=== PATIENT | male | born 1995 | race Hispanic/Latino ===

== ENCOUNTER 2023-09-27 19:01 | Inpatient (IN) | payer SELFPAY ==
--- OUTSIDE RECORDS SUMMARY | 2023-09-27 19:04 | XMS REPORT | Continuity of Care Document ---
:1995 Author Organization [facility] t Address [address] [place] [address] Care Team Providers Name Role Phone Kristie Valdez Attending Clinician Doctor Unassigned, [place] Attending Clinician Unavailable Problems This patient has no known problems. Allergies, Adverse Reactions, Alerts This patient has no known allergies or adverse reactions. Social History Social Habit Start Date Stop Date Quantity Comments [facility] Smoking Status Start Date Stop Date Source Unknown if ever smoked [facility] Medications Ordered Filled Start Stop Current Ordering Indication Dosage Frequency Signature Comments Components Source Medication Medication Date Date Medication? Clinician (SIG) Name Name No known No [facility] medications [facility] Vital Signs Vital Name Observation Time Observation Value Comments Source Systolic blood 2019-12-26 18:19:00 132 mm[Hg] [facility] Diastolic blood 2019-12-26 18:19:00 78 mm[Hg] [facility] Heart rate 2019-12-26 18:19:00 77 /min [facility] Body temperature 2019-12-26 18:19:00 36.89 [facility] Respiratory rate 2019-12-26 18:19:00 14 /min [facility] Body height 2019-12-26 18:19:00 190.5 cm [facility] Body weight 2019-12-26 18:19:00 63.504 kg [facility] BMI 2019-12-26 18:19:00 17.50 kg/m2 [facility] Oxygen saturation in 2019-12-26 18:19:00 100 /min [facility] blood by [facility] Pulse oximetry Branch Procedures Procedure Date / Time Performed Performing Clinician [facility] e NOTICE OF PRIVACY 2019-12-26 18:13:30 Doctor Unassigned, No [facility] [place] [facility] Name Medical Branch CONSENT/REFUSAL FOR 2019-12-26 18:13:17 Doctor Unassigned, [facility] AND Name Medical Branch TREATMENT Encounters Start End Encounter Admission Attending Care Care Encounter Source Date/Time Date/Time Type Type Clinicians Facility Department ID 2019-12-26 2019-12-26 Emergency Margo [facility] [id number] Univers 12:20:04 13:06:00 Kristiewayne Rea [id number] [facility] [place] [id number] [facility] [id number] [facility] tung 084 Branch 2019-12-26 2019-12-26 Orders Doctor LIU [id number] Univers 00:00:00 00:00:00 Only Unassigned, JOSIE [id number] [facility] [place] [facility] [id number] Michel [id number] [facility] tung 009 Branch Results This patient has no known results.
[2023-09-27 19:10] LABS: Arterial Blood Carboxyhemoglob 0.5 % (0-1.5); Blood O2 Saturation 94.3 % (92-98.5)
[2023-09-27 19:31] LABS: Absolute Lymphocytes (CBC) 0.6 K/uL (0.7-4.9); Hematocrit 39.7 % (39.6-49.0); Lymphocytes % 2.4 % (15.3-44.8); MCV 88.3 fL (80-100); MPV 8.6 fL (7.6-11.3); Platelets 246 thou/uL (152-406)
[2023-09-27 19:37] LABS: Protime INR 1.38
[2023-09-27] MEDS ORDERED: THIAMINE 200 MG/2 ML INJ ONE (19:40)
[2023-09-27] MEDS ORDERED: NA CHLORIDE 0.9% 1,000 ML ONE (19:51)
[2023-09-27] MEDS ORDERED: EPINEPHrine 1 MG/10 ML SYR ONE (19:51)
[2023-09-27] MEDS ORDERED: MIDAZOLAM HCL IN 0.9 % NACL/PF 100 MG/100 ML BAG IVPB ONE (19:57)
[2023-09-27 19:59] LABS: ALT/SGPT 125 U/L (16-61); AST/SGOT 356 U/L (15-37); Albumin 3.1 g/dL (3.4-5.0); Alkaline Phosphatase 81 U/L (45-117); BUN Blood Urea Nitrogen 15 mg/dL (7-18); Bicarbonate 24 mEq/L (21-32); Bilirubin Total 0.1 mg/dL (0.2-1.0); Glomerular Filtration Rate 37 ml/min (=/>90); Magnesium 2.7 mg/dL (1.6-2.4); Potassium 4.4 mEq/L (3.5-5.1); Protein, Total 6.1 g/dL (6.4-8.2); Sodium Level 140 mEq/L (136-145)
[2023-09-27] MEDS ORDERED: MIDAZOLAM HCL 100 MG in NA CHLORIDE 0.9% 80 ML IV SCH (20:00)
[2023-09-27] MEDS ORDERED: NOREPINEPHRINE BITARTRATE/D5W 0 MG/0 ML BAG IV ONE (20:00)
[2023-09-27] MEDS ORDERED: NOREPINEPHRINE 4 MG in D5W 250 ML IV SCH (20:00)
[2023-09-27] MEDS: NA CHLORIDE 0.9% 1,000 ML IV SCH ×3 (20:00→22:28)
[2023-09-27 20:06] LABS: Bilirubin Direct < 0.1 mg/dL (0-0.2); Bilirubin Indirect, Calculated ND mg/dL (0.2-0.8)
[2023-09-27 20:06] LABS: Barbiturates NEGATIVE (NEGATIVE); Benzodiazepines NEGATIVE (NEGATIVE); Cocaine NEGATIVE (NEGATIVE); METHAMPHETAM POSITIVE (NEGATIVE); Methadone NEGATIVE (NEGATIVE); Opiates NEGATIVE (NEGATIVE); Phencyclidine NEGATIVE (NEGATIVE); THC Cannibis NEGATIVE (NEGATIVE)
[2023-09-27 20:07] LABS: Glucose Level 51 mg/dL (74-106)
[2023-09-27 20:08] LABS: Troponin High Sensitivity 565.7 pg/mL (<58.9)
[2023-09-27 20:16] LABS: Blood Morphology Comment NOT SEEN (NOT SEEN); Platelet Estimate ADEQ
--- NOTE | 2023-09-27 20:32 | RAD REPORT ---
EXAM DESCRIPTION: Shruthi Single View09/27/2023 7:31 pm CLINICAL HISTORY: CHEST PAIN COMPARISON: No comparisons TECHNIQUE: Portable AP view of the chest. FINDINGS: Endotracheal tube terminates in the upper thoracic trachea, terminating 8.2 cm above the c frank. Enteric tube in satisfactory position. Hazy right basal lung airspace opacification. No pneum othorax or effusion. The cardiomediastinal contours are unremarkable. IMPRESSION: Endotracheal and enteric tube as above. Hazy right basilar airspace opacity, concerning for aspiration or pneumonia.
[2023-09-27] MEDS: ALBUTEROL 2.5 MG/3 ML NEB SOL NEB SCH (20:45)
--- NOTE | 2023-09-27 20:48 | RAD REPORT ---
EXAM DESCRIPTION: CT - [id number] - 09/27/2023 7:44 pm CLINICAL HISTORY: AMS COMPARISON: No comparisons TECHNIQUE: Axial thin cut noncontrast CT images of the head were obtained. Axial thin cut noncontrast CT images of the cervical spine were obtained. Multiplanar reformatted images were generated and reviewed. All CT scans are performed using dose optimization technique as appropriate and may include automated exposure control or mA/KV adjustment according to patient size. FINDINGS: CT HEAD WITHOUT CONTRAST: No acute hemorrhage, hydrocephalus or extra-axial collection is identified.No areas of brain edema or midline shift. The paranasal sinuses and mastoids are clear.The calvarium is intact. CT CERVICAL SPINE WITHOUT CONTRAST: No fracture or subluxation.No prevertebral soft tissues swelling is identified. Enteric tube in plac e. Fluid opacification of the nasopharynx and left paranasal sinuses. IMPRESSION: No acute traumatic intracranial or cervical spine findings.
[2023-09-27] MEDS ORDERED: ALBUTEROL 2.5 MG/3 ML NEB SOL ONE (20:52)
--- NOTE | 2023-09-27 21:16 | ER ---
Nurse's Notes [facility] Name: Sae Betancur III Age: 27 yrs Sex: Male : 1995 Arrival Date: 09/27/2023 Time: 19:01 Bed 2 Private MD: Diagnosis: Acute respiratory failure;Rhabdomyolysis;Elevated troponin;Hypoglycemia, unspecified Presentation: 09/27 19:08 Chief complaint: EMS states: 26 year old male, inmate in [facility] group home, found by ph officer in cell slumped over, unresponsive w/ snoring respirations, pt then became apneic and pulsess, officer started compressions x approx 2 minutes, upon EMS arrival pt was breathing, + pulses, pinpoint pupils noted, 4.mg Narcan given w/ no response, pt then began to have seizure like activity x 3, longest lasting approx 5 minutes, BGL 45, D10 given, BGL improved to 170, Pt intubated by EMS, 8 ETT measuring 21\T\ teeth 150 mg Ketamine and 80 mg Rocuronium given for intubation. Suspected Fentanyl overdose per officer at bedside. Coronavirus screen: Vaccine status: Patient reports being unvaccinated. Ebola Screen: No symptoms or risks identified at this time. Initial Sepsis Screen: Does the patient meet any 2 criteria? No. Patient's initial sepsis screen is negative. Does the patient have a suspected source of infection? No. Patient's initial sepsis screen is negative. Risk Assessment: Do you want to hurt yourself or someone else? Patient reports no desire to harm self or others. Onset of symptoms was September 27, 2023. 19:08 Method Of Arrival: EMS: [facility] 19:08 Acuity: TOMAS 1 ph Historical: - Allergies: 19:15 No Known Allergies; ph - PMHx: 19:15 None; ph - Immunization history:: Adult Immunizations unknown. - Social history:: Smoking status: unknown. Screenin:15 Abuse screen: unable to access, unconscious upon arrival. jw7 19:15 [facility] ED Fall Risk Assessment (Adult) History of falling in the last 3 months, jw7 including since admission No falls in past 3 months (0 pts) Score/Fall Risk Level 0 - 2 = Low Risk. Nutritional screening: No deficits noted. Tuberculosis screening: No symptoms or risk factors identified. Assessment: 19:15 General: Appears distressed, comfortable, Behavior is unresponsive. Pain: Unable to use jw7 pain scale. Patient is intubated. Neuro: Piña Agitation-Sedation Scale (RASS): -4 Deep sedation Level of Consciousness is unresponsive. Cardiovascular: Capillary refill < 3 seconds Clubbing of nail beds is absent JVD is absent Patient's skin is warm and dry. Rhythm is sinus tachycardia. Respiratory: Ventilator assessment: ET Tube: 8.0 23 cm at the teeth Ventilator Mode: Assist Control (AC) Tidal Volume: 450 Respiratory Rate: 20 FiO2: 60 Pressure Support: 20 PEEP: 5. 19:15 GI: Abdomen is flat, non-distended. : No deficits noted. EENT: No deficits noted. jw7 Derm: No deficits noted. Musculoskeletal: No deficits noted. 20:20 Reassessment: Patient appears in no apparent distress at this time. No changes from jw7 previously documented assessment. Patient and/or family updated on plan of care and expected duration. Pain level reassessed. Patient is alert, oriented x 3, equal unlabored respirations, skin warm/dry/pink. 21:30 Reassessment: Patient appears in no apparent distress at this time. No changes from jw7 previously documented assessment. Patient and/or family updated on plan of care and expected duration. Pain level reassessed. Patient is alert, oriented x 3, equal unlabored respirations, skin warm/dry/pink. 21:37 Reassessment: ET Tube adjusted by provider to 25 cm at the teeth. jw7 22:30 Reassessment: Patient appears in no apparent distress at this time. No changes from jw7 previously documented assessment. Patient and/or family updated on plan of care and expected duration. Pain level reassessed. Patient is alert, oriented x 3, equal unlabored respirations, skin warm/dry/pink. Vital Signs: 19:08 BP 94 / 67; Pulse 115; Resp 20; Pulse Ox 96% on ETT vent; FiO2 100 %; Weight 80 kg; ph 20:46 BP 100 / 76; Pulse 108; Resp 18 A; Temp 97(Ca); Pulse Ox 97% on ETT vent; ha1 21:38 BP 110 / 70; Pulse 102 MON; Resp 20 A; Temp 97.8(Ca); Pulse Ox 96% on ETT vent; FiO2 60 jw7 %; 22:30 BP 118 / 62; Pulse 110; Resp 20; Temp 98.1; Pulse Ox 97% on ETT vent; jw7 ED Course: 19:03 Patient arrived in ED. ms3 19:03 Scott Kaur DO is Attending Physician. ms3 19:15 Triage completed. ph 19:15 Patient has correct armband on for positive identification. Bed in low position. Call jw7 light in reach. Side rails up X2. 19:15 Maintain EMS IV. Dressing intact. Good blood return noted. Site clean \T\ dry. Gauge \T\ jw 7 site: 18g and 20g in RAC and LAC . 19:16 Arm band placed on Patient placed in an exam room, on a stretcher, on oxygen, on ph digital product specialist, on pulse oximetry. 19:33 XRAY Chest (1 view) In Process Unspecified. EDMS 19:45 CT Head C Spine In Process Unspecified. EDMS 21:16 Chang Negrete MD is Hospitalizing Provider. ms3 21:34 Shereen Gordillo RN is Primary Nurse. jw7 21:35 Assisted provider with central line placement. Set up central line tray. Triple lumen jw7 line placed in left femoral. Line placed by Cecelia ROME-Nubia Placement verified by CXR, blood return, Dressed with Tegaderm, Patient tolerated well. Time-out/Briefing performed prior to start of procedure? Yes. Was handwashing/sanitizing done immediately prior to procedure? Yes. Was patient positioned to in a way to prevent air embolism? Yes. Was procedure site sterilized? Yes, with chlorhexidine. Was the site allowed to dry? Yes. During the procedure, did the Practitioner(s) maintain a sterile field? Yes. Were unused ports clamped during insertion? Yes. Was blood aspirated from each lumen? Yes. After the procedure, did the Practitioner(s) clean the site and apply a sterile dressing? Yes. 21:55 Blood Culture Adult (2) Sent. ha1 21:55 Lactate w/ 2H reflex if indic. Sent. ha1 21:55 Ptt, Activated Sent. ha1 22:50 Provided Education on: unable to preform education due to patient being intubated and jw7 sedated. 22:50 Patient admitted, IV remains in place. jw7 Administered Medications: 19:16 Drug: D5-NS IV 1000 ml IV at 125 ml/hr once; 1000 mL bolus; followed by 125 mL/hr ph continuous Route: IV; Rate: 125 ml/hr; Site: left antecubital; 21:41 Follow up: Response: No adverse reaction; IV Status: Infusion continued 19:28 Drug: Thiamine IV 100 mg IV at calculated rate once Route: IV; Rate: calculated rate; jw7 Site: left antecubital; 21:41 Follow up: Response: No adverse reaction; IV Status: Completed infusion jw 19:56 Drug: Midazolam IVP or IV 0.01 mg/kg/h IV at calculated rate See Administration jw7 Instructions; (Standard concentration: 100 mg / 100 mL NS); Recommended max rate 0.1 mg/kg/hr; Titrate 0.01 mg/kg/hr as often as every 30 minutes to achieve goal (see titration policy); Goal parameter RASS 0 to -2 {Note: started at 1mg/hr .} Route: IV; Rate: calculated rate; Site: right antecubital; 19:57 Drug: Midazolam IVP or IV 0.01 mg/kg/h IV at calculated rate See Administration jw7 Instructions; (Standard concentration: 100 mg / 100 mL NS); Recommended max rate 0.1 mg/kg/hr; Titrate 0.01 mg/kg/hr as often as every 30 minutes to achieve goal (see titration policy); Goal parameter RASS 0 to -2 Route: IV; Rate: calculated rate; Site: right antecubital; 19:58 Drug: Norepinephrine IV 0.1 mcg/kg/min IV at calculated rate See Administration jw7 Instructions; (Standard concentration 4 mg / 250 mL D5W); Recommended max rate 3 mcg/kg/min; Titrate 0.05 mcg/kg/min as often as every 5 minutes to achieve goal (see titration policy); Goal parameter MAP greater than 65 mmHg. Route: IV; Rate: calculated rate; Site: left antecubital; 22:53 Follow up: Response: No adverse reaction jw7 21:24 Drug: Calcium Gluconate IVPB 2 grams IVPB once over 60 mins; (mix in NS 100 mL) Route: ha1 IVPB; Infused Over: 60 mins; Site: left antecubital; 22:52 Follow up: Response: No adverse reaction; IV Status: Infusion continued upon admission jw 21:35 Drug: Rocephin IV 1 grams IV at calculated rate once; Given slow IV push per pharmacy ha1 instructions Route: IV; Rate: calculated rate; Site: left antecubital; 22:53 Follow up: Response: No adverse reaction; IV Status: Completed infusion jw7 21:55 Drug: AZITHromycin IVPB 500 mg IVPB once over 1 hrs; (mix in 250 mL NS) Route: IVPB; ha1 Infused Over: 1 hrs; Site: left antecubital; 22:53 Follow up: Response: No adverse reaction; IV Status: Infusion continued upon admission jw7 Medication: 21:40 VIS not applicable for this client. jw7 Outcome: 21:16 Decision to Hospitalize by Provider. ms3 22:50 Admitted to ICU accompanied by nurse, via stretcher, room 5, with oxygen, on monitor, jw7 with chart, 22:50 Condition: stable 22:50 Instructed on the need for admit, Demonstrated understanding of instructions, 22:52 Patient left the ED. jw7 Signatures: Dispatcher [employer] EDEsther Houser, RN RN Scott Kaur, DO DO ms3 Shereen Gordillo RN RN jw7 Eun Perez, RN RN ha1
--- NOTE | 2023-09-27 21:17 | EDPHYS ---
Physician Documentation [facility] Name: Sae Betancur III Age: 27 yrs Sex: Male : 1995 Arrival Date: 09/27/2023 Time: 19:01 Bed 2 Private MD: ED Physician Scott Kaur HPI: 09/27 19:16 This 27 yrs old Male presents to ER via EMS with complaints of AMS. ms3 19:16 27-year-old male with no past medical history presents via [facility] after being found ms3 unresponsive in the [facility] [employer] [facility]. Per EMS officer found patient unresponsive in fci cell. Officer states he came on shift at 5 AM and found patient unresponsive at 5:30 PM. It is unknown how long patient was unresponsive on his bed. Officer states drugs that tested positive for methamphetamines were found in patient's cell. Officer states patient quit breathing and became pulseless and chest compressions were performed for 2 minutes and then patient began breathing again. EMS administered 4 mg of Narcan without change in patient's mental status. EMS notes patient's blood glucose level to be 45. Ketamine 150 mg and 80 mg rocuronium were used for RSI with an 8.0 endotracheal tube at 21 cm at the teeth. EMS notes patient had 330-second seizures.. Historical: - Allergies: 19:15 No Known Allergies; ph - PMHx: 19:15 None; ph - Immunization history:: Adult Immunizations unknown. - Social history:: Smoking status: unknown. ROS: 20:39 Unable to obtain ROS due to patient is on ventilator, ms3 Exam: 20:39 Constitutional: The patient appears Unresponsive ms3 20:39 Head/face: Exam is negative for acute changes, obvious evidence of injury or deformity, 20:39 Eyes: Pupils: equal, round, and reactive to light and accomodation, constricted, bilaterally, 20:39 Neck: External neck: no acute changes, 20:39 Chest/axilla: Inspection: normal, no abrasion, no abscess, no assymetry, no cellulitis, no deformity, no ecchymosis, 20:39 Cardiovascular: Rate: tachycardic, Rhythm: regular, 21:40 ECG was reviewed by the Attending Physician. ms3 Vital Signs: 19:08 BP 94 / 67; Pulse 115; Resp 20; Pulse Ox 96% on ETT vent; FiO2 100 %; Weight 80 kg; ph 20:46 BP 100 / 76; Pulse 108; Resp 18 A; Temp 97(Ca); Pulse Ox 97% on ETT vent; ha1 21:38 BP 110 / 70; Pulse 102 MON; Resp 20 A; Temp 97.8(Ca); Pulse Ox 96% on ETT vent; FiO2 60 jw7 %; 22:30 BP 118 / 62; Pulse 110; Resp 20; Temp 98.1; Pulse Ox 97% on ETT vent; jw7 MDM: 19:03 Patient medically screened. ms3 20:42 Differential Diagnosis: CVA, electrolyte abnormality, hypoglycemia, intracranial bleed, ms3 overdose. Data reviewed: vital signs, nurses notes, and as a result, I will admit patient. Consideration of Admission/Observation Patient was admitted/placed on observation. Management of patient was discussed with the following: Hospitalist: Cecelia Leon NP on behalf of Hospitalist team. I considered the following discharge prescriptions or medication management in the emergency department Medications were administered in the Emergency Department. See MAR. Independent interpretation of the following test(s) in the Emergency Department EKG: See my EKG interpretation above X-Ray: My interpretation is CXR image reviewed by me- ETT needs 4 cm advancement. 09/27 19:04 Order name: Basic Metabolic Panel; Complete Time: 20:37 ms3 09/27 19:04 Order name: CBC with Diff; Complete Time: 20:37 ms3 09/27 19:04 Order name: LFT's; Complete Time: 20:37 ms3 09/27 19:04 Order name: Magnesium; Complete Time: 20:37 ms3 09/27 19:04 Order name: PT-INR; Complete Time: 20:37 ms3 09/27 19:04 Order name: Troponin HS; Complete Time: 20:37 ms3 09/27 19:04 Order name: ABG; Complete Time: 20:37 ms3 09/27 19:16 Order name: CK; Complete Time: 21:14 ms3 09/27 19:23 Order name: UDS; Complete Time: 20:37 rv 09/27 20:04 Order name: CBC with Automated Diff EDMS 09/27 20:04 Order name: Comprehensive Metabolic Panel EDMS 09/27 20:04 Order name: Magnesium EDMS 09/27 20:04 Order name: ABG Arterial Blood Gas; Complete Time: 22:10 EDMS 09/27 20:16 Order name: Manual Differential; Complete Time: 20:37 EDMS 09/27 20:45 Order name: Blood Culture Adult (2) ms3 09/27 20:45 Order name: Lactate w/ 2H reflex if indic. ms3 09/27 20:45 Order name: Ptt, Activated ms3 09/27 21:08 Order name: Glucose, Ancillary Testing; Complete Time: 21:14 EDMS 09/27 21:12 Order name: PTT, Activated Partial Thromb; Complete Time: 21:14 EDMS 09/27 21:51 Order name: Lactate w/ 2H reflex if indic.; Complete Time: 22:10 EDMS 09/27 19:04 Order name: XRAY Chest (1 view); Complete Time: 20:37 ms3 09/27 19:04 Order name: CT Head C Spine; Complete Time: 21:14 ms3 09/27 20:04 Order name: Abdomen 1 View (KUB) EDMS 09/27 21:29 Order name: RAD; Complete Time: 21:31 EDMS 09/27 19:04 Order name: EKG; Complete Time: 19:04 ms3 09/27 20:04 Order name: EKG Electrocardiogram EDMS 09/27 20:04 Order name: EKG Electrocardiogram EDMS 09/27 20:04 Order name: EKG Electrocardiogram EDMS 09/27 20:04 Order name: EKG Electrocardiogram EDMS 09/27 19:04 Order name: Cardiac monitoring; Complete Time: 19:16 ms3 09/27 19:04 Order name: EKG - Nurse/Tech; Complete Time: 19:16 ms3 09/27 19:04 Order name: IV Saline Lock; Complete Time: 19:16 ms3 09/27 19:04 Order name: Labs collected and sent; Complete Time: 19:34 ms3 09/27 19:04 Order name: O2 Per Protocol; Complete Time: 19:16 ms3 09/27 19:04 Order name: O2 Sat Monitoring; Complete Time: 19:16 ms3 09/27 20:45 Order name: Accucheck; Complete Time: 20:57 ms3 09/27 20:45 Order name: IV Saline Lock - Large Bore; Complete Time: 20:48 ms3 09/27 20:45 Order name: Vital Signs; Complete Time: 20:47 ms3 EC:40 Rate is 108 beats/min. Rhythm is regular. QRS [place] is Normal. [place] interval is normal. ms3 QRS interval is normal. Clinical impression: Sinus tachycardia. Interpreted by me. Reviewed by me. Administered Medications: 19:16 Drug: D5-NS IV 1000 ml IV at 125 ml/hr once; 1000 mL bolus; followed by 125 mL/hr ph continuous Route: IV; Rate: 125 ml/hr; Site: left antecubital; 21:41 Follow up: Response: No adverse reaction; IV Status: Infusion continued jw7 19:28 Drug: Thiamine IV 100 mg IV at calculated rate once Route: IV; Rate: calculated rate; jw7 Site: left antecubital; 21:41 Follow up: Response: No adverse reaction; IV Status: Completed infusion jw7 19:56 Drug: Midazolam IVP or IV 0.01 mg/kg/h IV at calculated rate See Administration jw7 Instructions; (Standard concentration: 100 mg / 100 mL NS); Recommended max rate 0.1 mg/kg/hr; Titrate 0.01 mg/kg/hr as often as every 30 minutes to achieve goal (see titration policy); Goal parameter RASS 0 to -2 {Note: started at 1mg/hr .} Route: IV; Rate: calculated rate; Site: right antecubital; 19:57 Drug: Midazolam IVP or IV 0.01 mg/kg/h IV at calculated rate See Administration jw7 Instructions; (Standard concentration: 100 mg / 100 mL NS); Recommended max rate 0.1 mg/kg/hr; Titrate 0.01 mg/kg/hr as often as every 30 minutes to achieve goal (see titration policy); Goal parameter RASS 0 to -2 Route: IV; Rate: calculated rate; Site: right antecubital; 19:58 Drug: Norepinephrine IV 0.1 mcg/kg/min IV at calculated rate See Administration jw7 Instructions; (Standard concentration 4 mg / 250 mL D5W); Recommended max rate 3 mcg/kg/min; Titrate 0.05 mcg/kg/min as often as every 5 minutes to achieve goal (see titration policy); Goal parameter MAP greater than 65 mmHg. Route: IV; Rate: calculated rate; Site: left antecubital; 22:53 Follow up: Response: No adverse reaction 7 21:24 Drug: Calcium Gluconate IVPB 2 grams IVPB once over 60 mins; (mix in NS 100 mL) Route: ha1 IVPB; Infused Over: 60 mins; Site: left antecubital; 22:52 Follow up: Response: No adverse reaction; IV Status: Infusion continued upon admission jw7 21:35 Drug: Rocephin IV 1 grams IV at calculated rate once; Given slow IV push per pharmacy ha1 instructions Route: IV; Rate: calculated rate; Site: left antecubital; 22:53 Follow up: Response: No adverse reaction; IV Status: Completed infusion jw7 21:55 Drug: AZITHromycin IVPB 500 mg IVPB once over 1 hrs; (mix in 250 mL NS) Route: IVPB; ha1 Infused Over: 1 hrs; Site: left antecubital; 22:53 Follow up: Response: No adverse reaction; IV Status: Infusion continued upon admission 7 Disposition: 20:42 Critical Care:. ms3 20:44 Chart complete. ms3 Disposition Summary: 09/27/23 21:16 Hospitalization Ordered Notes: Hospitalization Status: Inpatient Admission ms3 Provider: Chang Negrete ms3 Location: Intensive Care Unit ms3 Condition: Stable ms3 Problem: new ms3 Symptoms: are unchanged ms3 Bed/Room Type: Standard ms3 Room Assignment: 7-(09/27/23 22:02) lg3 Diagnosis - Acute respiratory failure ms3 - Rhabdomyolysis ms3 - Elevated troponin ms3 - Hypoglycemia, unspecified ms3 Forms: - Medication Reconciliation Form ms3 - SBAR form ms3 - Leadership Thank You Letter ms3 Critical care time excluding procedures: 20:42 Critical care time: Bedside Care: 30 minutes, Consultation: 5 minutes. Total time: 35 ms3 minutes Signatures: Dispatcher [employer] Cecelia Carranza FNP-C FNP-Esther Boucher RN RN Marcy Becerra RN RN lg3 Scott Kaur DO DO ms3 Shereen Gordillo RN RN jw7 Eun Perez RN RN ha1 Corrections: (The following items were deleted from the chart) 21:56 21:16 ms3 lg3 22:02 21:56 5- lg3 lg3
--- NOTE | 2023-09-27 21:29 | RAD REPORT ---
EXAM DESCRIPTION: RADChest Single View09/27/2023 9:02 pm CLINICAL HISTORY: Placement of NGT/OGT. Post Insertion. COMPARISON: Chest Single View dated 09/27/2023 TECHNIQUE: Portable AP view of the chest. FINDINGS: Endotracheal tube has been advanced, its tip now terminates 6 cm above the bishop. Stable hazy right basilar opacity . . No pneumothorax or effusion. The cardiomediastinal contours are unrem arkable. IMPRESSION: Endotracheal tube has been advanced. Stable right basilar hazy opacity.
[2023-09-27] MEDS ORDERED: CALCIUM GLUCONATE 1 GM IVPB 2 GM/100 ML BAG IV ONE (21:33)
[2023-09-27] MEDS ORDERED: CEFTRIAXONE 1000 MG/VIAL ONE (21:53)
[2023-09-27] MEDS ORDERED: NA CHLORIDE 0.9% 250 ML ONE (21:54)
[2023-09-27] MEDS ORDERED: AZITHROMYCIN 500 MG INJ IVPB ONE (21:54)
[2023-09-27 22:00] LABS: Arterial Blood Carboxyhemoglob 0.4 % (0-1.5); Blood Gas Oxyhemoglobin 91.5 % (94-97); Blood O2 Saturation 93.5 % (92-98.5)
--- NOTE | 2023-09-27 22:03 | P.HP ---
Certification for Inpatient With expected LOS: >2 Midnights Patient will require the following post-hospital care: None Practitioner: I am a practitioner with admitting privileges, knowledge of patient current condition, hospital course, and medical plan of care. Services: Services provided to patient in accordance with Admission requirements found in Title 42 Section 412.3 of the Code of Federal Regulations Patient History Date of Service: 09/28/23 Primary Care Provider: unavailable Reason for admission: Overdose, Respiratory failure s/p CPR, Rhabdomyolysis History of Present Illness: Patient was in the [facility] assisted as of this morning. The night police cadet found patient supine on his bunk, cyanotic, and apneic. The officer started CPR, gave intranasal Narcan. EMS arrived and administered narcan and glucose, the patient began seizing. The patient was intubated and brought to the ED. Initially in the ED the patient did not require sedation but after about 40 minutes began moving minimally. Pt was started on a Versed and Levaphed drip. Pt placed for admission to ICU. Upon assessment, pt necessitated advancement of the 8F ETT to 25cm at the teeth and placement of a central line. Triple lumen placed to left femoral vessel. +Blood return. Will admit to ICU. Allergies Unable to Assess Allergy (Unverified 09/27/23 22:03) Home medications list reviewed: No - Past Medical/Surgical History Has patient received pneumonia vaccine in the past: No Diabetic: No Past Medical History: Unable to obtain Past Surgical History: Unable to obtain - Social History Smoking therapy provided: No (unable to obtain history) Place of Residence: Home Review of Systems is unable to be obtained Physical Examination - Vital Signs Temperature: 97.8 F Blood Pressure: 112/68 Pulse: 109 Respirations: 20 Pulse Ox (%): 96 - Physical Exam General: Unresponsive HEENT: Atraumatic Neck: Supple, 2+ carotid pulse no bruit Respiratory: Clear to auscultation bilaterally, Other (intubated) Cardiovascular: Regular rate/rhythm, Normal S1 S2, Other (tachycardic) Capillary refill: <2 Seconds Gastrointestinal: Normal bowel sounds, Other (OG placed with ETT) Musculoskeletal: No clubbing, No swelling, No contractures Integumentary: Other (mild central chest contusion, right fingers contused) Neurological: Normal reflexes 2+ Lymphatics: No axilla or inguinal lymphadenopathy Urinary: Cervantes catheter, Other (dark/brown urine) External genitalia: No edema, Normal Rectal: Deferred - Studies Laboratory Data (last 24 hrs) 09/27/23 09/27/23 09/27/23 19:11 19:11 19:11 WBC 26.20 H Hgb 12.9 L Hct 39.7 Plt Count 246 PT 15.2 H INR 1.38 APTT 37.3 H Sodium Potassium BUN Creatinine Glucose Magnesium Total Bilirubin AST ALT Alkaline Phosphatase 09/27/23 19:11 WBC Hgb Hct Plt Count PT INR APTT Sodium 140 Potassium 4.4 BUN 15 Creatinine 2.35 H Glucose 51 L* Magnesium 2.7 H Total Bilirubin 0.1 L AST 356 H ALT 125 H Alkaline Phosphatase 81 Assessment and Plan - Problems (Diagnosis) (1) Overdose by amphetamine Current Visit: Yes Status: Acute Plan: Respiratory support via mechanical ventilation with prn Versed for needed sedation Circulatory support with Levaphed to keep map >70 Qualifiers: Encounter type: initial encounter Injury intent: accidental or unintentional Qualified Code(s): T43.621A - Poisoning by amphetamines, accidental (unintentional), initial encounter (2) Collapse with respiratory arrest on examination Current Visit: Yes Status: Acute Plan: mechanical ventilation with inital ABG evaluation and then follow up ABG for evaluation of improvement (3) Rhabdomyolysis Current Visit: Yes Status: Acute Plan: Fluid resuscitation and serial electrolyte evaluation and correction Cervantes and UOP evaluation Qualifiers: Rhabdomyolysis type: non-traumatic Qualified Code(s): M62.82 - Rhabdomyolysis (4) Troponin level elevated Current Visit: Yes Status: Acute Plan: serial troponin evaluation Discharge Plan: Home Plan to discharge in: 72 Hours - Advance Directives Does patient have a Living Will: No Does patient have a Durable POA for Healthcare: No - Code Status/Comfort Care Code Status: Full Code Critical Care: Yes Time Spent Managing Pts Care (In Minutes): 120
[2023-09-27 23:36] LABS: Potassium 4.7 mEq/L (3.5-5.1)
[2023-09-27 23:38] LABS: Troponin High Sensitivity 1780.9 pg/mL (<58.9)
[2023-09-28] MEDS ORDERED: CALCIUM GLUC 10% INJ 4.65 MEQ in NA CHLORIDE 0.9% 100 ML IV ONE (00:38)
[2023-09-28] MEDS ORDERED: CALCIUM GLUCONATE 1 GM IVPB 1 GM/50 ML BAG IV ONE (00:45)
[2023-09-28] MEDS: ALBUTEROL 2.5 MG/3 ML NEB SOL NEB SCH ×2 (01:15→08:20)
[2023-09-28] MEDS: NA CHLORIDE 0.9% 1,000 ML IV SCH ×5 (02:40→17:15)
[2023-09-28 02:44] LABS: Potassium 5.3 mEq/L (3.5-5.1)
[2023-09-28] MEDS ORDERED: NOREPINEPHRINE BITARTRATE/D5W 4 MG/250 ML BAG IV ONE (03:22)
[2023-09-28 04:50] LABS: Absolute Lymphocytes (CBC) 1.4 K/uL (0.7-4.9); Hematocrit 41.7 % (39.6-49.0); Lymphocytes % 8.1 % (15.3-44.8); MCV 87.7 fL (80-100); MPV 8.9 fL (7.6-11.3); Platelets 212 thou/uL (152-406); RBC Red Blood Cell Count 4.76 M/uL (4.33-5.43)
[2023-09-28 05:34] LABS: ALT/SGPT 224 U/L (16-61); AST/SGOT 799 U/L (15-37); Alkaline Phosphatase 74 U/L (45-117); BUN Blood Urea Nitrogen 19 mg/dL (7-18); Bicarbonate 25 mEq/L (21-32); Bilirubin Total 0.2 mg/dL (0.2-1.0); Glomerular Filtration Rate 42 ml/min (=/>90); Glucose Level 125 mg/dL (74-106); Magnesium 2.2 mg/dL (1.6-2.4); Potassium 4.9 mEq/L (3.5-5.1); Protein, Total 6.2 g/dL (6.4-8.2); Sodium Level 137 mEq/L (136-145)
[2023-09-28 05:35] LABS: Creatine Phosphokinase > 13020 U/L (39-308)
[2023-09-28 05:36] LABS: Troponin High Sensitivity 5766.2 pg/mL (<58.9)
[2023-09-28] MEDS ORDERED: NA CHLORIDE 0.9% 1,000 ML IV ONE ×2 (08:07→14:11)
[2023-09-28] MEDS ORDERED: ALBUTEROL 2.5 MG/3 ML NEB SOL ONE (08:20)
[2023-09-28] MEDS: CEFTRIAXONE 1,000 MG in NA CHLORIDE 0.9% 50 ML IVPB SCH ×2 (08:34→21:14)
[2023-09-28] MEDS ORDERED: FENTANYL CITR 100 MCG/2 ML IV PRN (08:38)
[2023-09-28] MEDS ORDERED: MIDAZOLAM HCL 2 MG/2 ML INJ IV PRN (08:38)
[2023-09-28] MEDS ORDERED: HALOPERIDOL LACT 5 MG/ML INJ IV PRN (08:38)
[2023-09-28] MEDS ORDERED: NA CHLORIDE 0.9% 0 ML ONE (08:39)
[2023-09-28] MEDS ORDERED: CEFTRIAXONE 1000 MG/VIAL ONE ×2 (08:39→21:22)
[2023-09-28] MEDS ORDERED: ALBUTEROL 2.5 MG/3 ML NEB SOL NEB PRN ×2 (08:44→14:00)
--- NOTE | 2023-09-28 08:47 | P.CNS ---
Date of Consult: 09/28/23 Reason for Consult: Respiratory failure patient on a ventilator Primary Care Provider: unavailable Chief Complaint: Overdose, Respiratory failure s/p CPR, Rhabdomyolysis History of Present Illness: Patient is 27 years of age found cyanotic apneic again seizing ended up here in the emergency room intubated currently on a ventilator and on a Versed drip/patient is positive for amphetamines troponins elevated rhabdomyolysis Allergies Unable to Assess Allergy (Unverified 09/27/23 22:03) - Past Medical/Surgical History Diabetic: No - Social History Smoking Status: Unknown if ever smoked Alcohol use: No CD- Drugs: Yes Caffeine use: No Place of Residence: Home Review of Systems is unable to be obtained Physical Examination Temp Pulse Resp BP Pulse Ox 98.0 F 94 H 20 122/75 93 09/28/23 05:15 09/28/23 06:45 09/28/23 06:45 09/28/23 06:45 09/28/23 06:45 General: Unresponsive Respiratory: Clear to auscultation bilaterally Cardiovascular: No edema, Regular rate/rhythm, Normal S1 S2 Laboratory Data (last 24 hrs) 09/27/23 09/27/23 09/27/23 19:11 19:11 19:11 WBC 26.20 H Hgb 12.9 L Hct 39.7 Plt Count 246 PT 15.2 H INR 1.38 APTT 37.3 H Sodium Potassium BUN Creatinine Glucose Magnesium Total Bilirubin AST ALT Alkaline Phosphatase 09/27/23 19:11 WBC Hgb Hct Plt Count PT INR APTT Sodium 140 Potassium 4.4 BUN 15 Creatinine 2.35 H Glucose 51 L* Magnesium 2.7 H Total Bilirubin 0.1 L AST 356 H ALT 125 H Alkaline Phosphatase 81 - Problems (1) Respiratory failure Current Visit: Yes Status: Acute Plan: Patient is 27 years of age prisoner admitted respiratory failure positive for amphetamines possible overdose troponins are elevated CPK is also elevated currently on vasopressors we will give some fluid boluses continue with IV fluids decrease FiO2 chest x-ray is clear troponins elevated 2D echo changed to dexmedetomidine patient also has renal failure White count is also elevated heparinized patient Qualifiers: Chronicity: acute
[2023-09-28] MEDS ORDERED: DEXMEDETOMIDINE HCL 200 MCG in NA CHLORIDE 0.9% 98 ML IV SCH (09:00)
[2023-09-28] MEDS ORDERED: NOREPINEPHRINE BITARTRATE/D5W 4 MG/250 ML BAG IV SCH (09:00)
[2023-09-28] MEDS ORDERED: ENOXAPARIN 40 MG/0.4 ML SQ SCH (09:00)
--- NOTE | 2023-09-28 09:02 | P.PN ---
Subjective Date of Service: 09/28/23 Primary Care Provider: unavailable Chief Complaint: Overdose, Respiratory failure s/p CPR, Rhabdomyolysis Subjective: No new changes, Improving Physical Examination - Vital Signs Temperature: 98.0 F Blood Pressure: 122/75 Pulse: 94 Respirations: 20 Pulse Ox (%): 93 - Physical Exam General: Alert HEENT: Atraumatic Neck: Supple Respiratory: Normal air movement Cardiovascular: Regular rate/rhythm, Normal S1 S2 Gastrointestinal: Soft and benign Musculoskeletal: No swelling - Studies Laboratory Data (last 24 hrs) 09/27/23 09/27/23 09/27/23 19:11 19:11 19:11 WBC 26.20 H Hgb 12.9 L Hct 39.7 Plt Count 246 PT 15.2 H INR 1.38 APTT 37.3 H Sodium Potassium BUN Creatinine Glucose Magnesium Total Bilirubin AST ALT Alkaline Phosphatase 09/27/23 19:11 WBC Hgb Hct Plt Count PT INR APTT Sodium 140 Potassium 4.4 BUN 15 Creatinine 2.35 H Glucose 51 L* Magnesium 2.7 H Total Bilirubin 0.1 L AST 356 H ALT 125 H Alkaline Phosphatase 81 Assessment And Plan - Plan Assessment and Plan - Problems (Diagnosis) (1) Overdose by amphetamine Current Visit: Yes Status: Acute Plan: Respiratory support via mechanical ventilation with prn Versed for needed sedation Circulatory support with Levaphed to keep map >70. Critical care following. Qualifiers: Encounter type: initial encounter Injury intent: accidental or unintentional Qualified Code(s): T43.621A - Poisoning by amphetamines, accidental (unintentional), initial encounter (2) Collapse with respiratory arrest on examination Current Visit: Yes Status: Acute Plan: management as above. (3) Rhabdomyolysis Current Visit: Yes Status: Acute Plan: Improving rhabdomyolysis. we will continue IV fludi and follow trend of cpk and troponin. Qualifiers: Rhabdomyolysis type: non-traumatic Qualified Code(s): M62.82 - Rhabdomyol ysis (4) Troponin level elevated Current Visit: Yes Status: Acute Plan: serial troponin evaluation. cardiology eval pending. Discharge Plan: back to correctional service. Plan to discharge in: >48hrs. - Advance Directives Does patient have a Living Will: No Does patient have a Durable POA for Healthcare: No - Code Status/Comfort Care Code Status: Full Code Critical Care: Yes. Discharge Plan: Home
[2023-09-28] MEDS: HEPARIN/D5W 25,000 UNIT/500 ML BAG IV SCH (09:51)
[2023-09-28] MEDS: DEXMEDETOMIDINE HCL 1,000 MCG in NA CHLORIDE 0.9% 490 ML IV SCH ×2 (10:43→23:33)
[2023-09-28] MEDS: LORazepam 2 MG/ML VIAL IV PRN ×2 (10:51→17:50)
[2023-09-28] MEDS ORDERED: LORazepam 2 MG/ML VIAL ONE (11:02)
[2023-09-28 14:08] LABS: Specific Gravity 1.015 (1.005-1.030); Urine Bacteria None Seen /HPF (<20); Urine Bilirubin NEGATIVE (Negative); Urine Blood 3+ (OVER) (Negative); Urine Clarity Extremely Turbid (Clear); Urine Color Light-Orange (Yellow); Urine Glucose NEGATIVE (Negative); Urine Mucus Slight /HPF (None Seen); Urine Protein 1+ (Negative); Urine RBC <5 /HPF (None Seen); Urine Urobilinogen Normal (Normal); Urine pH 5.5 (5.0-7.0)
[2023-09-28] MEDS ORDERED: MIDAZOLAM HCL 2 MG/2 ML INJ ONE (17:26)
[2023-09-28] MEDS ORDERED: NA CHLORIDE 0.9% 1,000 ML ONE (18:02)
[2023-09-28] MEDS ORDERED: FENTANYL CITR 100 MCG/2 ML ONE (18:15)
[2023-09-28] MEDS ORDERED: MIDAZOLAM HCL 5 ML ONE (18:17)
--- NOTE | 2023-09-28 18:49 | RAD REPORT ---
EXAM DESCRIPTION[facility] 6:30 pm CLINICAL HISTORY: attempted self extubation COMPARISON: Chest Single View dated 09/27/2023; Chest Single View dated 09/27/2023 TECHNIQUE: Portable AP view of the chest. FINDINGS: Stable extent of right basilar opacification, with developing small right pleural effusion . Endotracheal and enteric tubes unchanged in position. No pneumothorax or effusion. The cardiomedia stinal contours are unremarkable. IMPRESSION: Developing small right pleural effusion with otherwise stable right basilar airspace opa city, concerning for pneumonia. Endotracheal tube unchanged in position.
[2023-09-28] MEDS ORDERED: NA CHLORIDE 0.9% 100 ML ONE (21:23)
[2023-09-28] MEDS ORDERED: NA CHLORIDE 0.9% 50 ML ONE (21:25)
[2023-09-29] MEDS: NA CHLORIDE 0.9% 1,000 ML IV SCH ×4 (02:37→15:38)
[2023-09-29 05:20] LABS: Absolute Lymphocytes (CBC) 0.3 K/uL (0.7-4.9); Hematocrit 33.8 % (39.6-49.0); Lymphocytes % 3.4 % (15.3-44.8); MCV 86.4 fL (80-100); MPV 8.8 fL (7.6-11.3); Platelets 119 thou/uL (152-406); RBC Red Blood Cell Count 3.91 M/uL (4.33-5.43)
[2023-09-29 06:19] LABS: BUN Blood Urea Nitrogen 22 mg/dL (7-18); Bicarbonate 26 mEq/L (21-32); Glomerular Filtration Rate 53 ml/min (=/>90); Glucose Level 107 mg/dL (74-106); Magnesium 2.1 mg/dL (1.6-2.4); Phosphorus 2.8 mg/dL (2.5-4.9); Potassium 4.2 mEq/L (3.5-5.1); Sodium Level 139 mEq/L (136-145)
[2023-09-29 06:31] LABS: Creatine Phosphokinase > 13020 U/L (39-308)
[2023-09-29] MEDS: CEFTRIAXONE 1,000 MG in NA CHLORIDE 0.9% 50 ML IVPB SCH ×2 (09:26→20:51)
[2023-09-29] MEDS: HEPARIN/D5W 25,000 UNIT/500 ML BAG IV SCH (12:08)
--- NOTE | 2023-09-29 12:22 | P.PN ---
Subjective Date of Service: 09/29/23 Primary Care Provider: unavailable Chief Complaint: Overdose, Respiratory failure s/p CPR, Rhabdomyolysis Subjective: No new changes, Improving Physical Examination - Vital Signs Temperature: 98.6 F Blood Pressure: 133/76 Pulse: 106 Respirations: 20 Pulse Ox (%): 96 - Physical Exam General: Alert HEENT: Atraumatic Assessment And Plan - Plan Assessment and Plan - Problems (Diagnosis) (1) Overdose by amphetamine Current Visit: Yes Status: Acute Plan: self extubated overnight. still quite groggy. Critical care following. Qualifiers: Encounter type: initial encounter Injury intent: accidental or unintentional Qualified Code(s): T43.621A - Poisoning by amphetamines, accidental (unintentional), initial encounter (2) Collapse with respiratory arrest on examination Current Visit: Yes Status: Acute Plan: had self extubated. we will follow as he has signs of aspiration. we will start steroid and metronidazole doses. Pulmonary following. new pleural effusion noted. (3) Rhabdomyolysis Current Visit: Yes Status: Acute Plan: Improving rhabdomyolysis. we will continue IV fluid and follow trend of cpk and troponin. Qualifiers: Rhabdomyolysis type: non-traumatic Qualified Code(s): M62.82 - Rhabdomyolysis (4) Troponin level elevated Current Visit: Yes Status: Acute Plan: serial troponin evaluation. cardiology eval pending. Discharge Plan: back to correctional service. Plan to discharge in: >48hrs. - Advance Directives Does patient have a Living Will: No Does patient have a Durable POA for Healthcare: No - Code Status/Comfort Care Code Status: Full Code Critical Care: Yes.
[2023-09-29] MEDS: ALBUTEROL 2.5 MG/3 ML NEB SOL NEB SCH ×2 (13:40→19:35)
[2023-09-29] MEDS: IPRATROPIUM BROM 0.5MG/2.5ML NEB SCH ×2 (13:40→19:35)
[2023-09-29] MEDS ORDERED: HYDROCODONE/APAP 5/325 MG TAB PO PRN (13:45)
--- NOTE | 2023-09-29 14:09 | EKG ---
Test Date: 2023-09-28 Test Time: 10:47:59 Cylinder Head Assembler: LOLITA MEASUREMENT RESULTS: Intervals: Rate: 87 FL: 138 QRSD: 100 QT: 368 QTc: 442 [place]: P: 79 FL: 138 QRS: 77 T: 70 INTERPRETIVE STATEMENTS: Normal sinus rhythm Normal ECG Compared to ECG 09/27/2023 19:10:49 Sinus tachycardia no longer present Electronically Signed On 09-29-23 14:07:07 RESERVATIONS CLERK by Melchor Ye
--- NOTE | 2023-09-29 14:12 | EKG ---
Test Date: 2023-09-27 Test Time: 19:10:49 Binding Machine Operator: JG MEASUREMENT RESULTS: Intervals: Rate: 108 MO: 152 QRSD: 112 QT: 370 QTc: 495 [place]: P: 79 MO: 152 QRS: 82 T: 65 INTERPRETIVE STATEMENTS: Sinus tachycardia Otherwise normal ECG No previous ECG available for comparison Electronically Signed On 09-29-23 14:07:49 DIRECTOR PEDIATRIC by Melchor Ye
--- NOTE | 2023-09-29 15:02 | RAD REPORT ---
EXAM DESCRIPTION: RAD - Chest Single View - 09/29/2023 4:08 am CLINICAL HISTORY: Self extubated COMPARISON: None. TECHNIQUE: XR CHEST 1 VIEW 09/29/2023 3:47 AM SCHOOL BUS DRIVER/MECHANIC FINDINGS: Cardiac silhouette is normal in size. There is a right basilar consolidation. There is a s mall right pleural effusion. There is no pneumothorax. There are no acute osseous findings. Right dwight phragm is elevated. IMPRESSION: Right basilar pneumonia with effusion. Electronically signed by: Manuel Rodriguez MD 09/29/2023 06:10 AM SCHOOL BUS DRIVER/MECHANIC Due to temporary technical issues with the PACS/Fluency reporting system, reports are being signed by the in house radiologists without review as a courtesy to insure prompt reporting. The interpreting radiologist is fully responsible for the content of the report.
[2023-09-29] MEDS: ACETAMINOPHEN 325 MG TABLET PO PRN ×2 (16:17→23:16)
[2023-09-29] MEDS: METHYLPREDNISOLONE 40 MG INJ IV SCH (17:18)
[2023-09-29] MEDS: METRONIDAZOLE 500mg IVPB 500 MG/100 ML BAG IV SCH (17:18)
[2023-09-29 21:43] VITALS: BMI 24.0
[2023-09-30] MEDS: NA CHLORIDE 0.9% 1,000 ML IV SCH ×5 (00:43→20:19)
[2023-09-30] MEDS: METRONIDAZOLE 500mg IVPB 500 MG/100 ML BAG IV SCH ×3 (00:43→16:15)
[2023-09-30] MEDS: METHYLPREDNISOLONE 40 MG INJ IV SCH ×3 (00:43→16:15)
[2023-09-30] MEDS: IPRATROPIUM BROM 0.5MG/2.5ML NEB SCH ×4 (01:35→19:45)
[2023-09-30] MEDS: ALBUTEROL 2.5 MG/3 ML NEB SOL NEB SCH ×4 (01:35→19:45)
[2023-09-30 04:56] LABS: Absolute Lymphocytes (CBC) 0.1 K/uL (0.7-4.9); Lymphocytes % 2.1 % (15.3-44.8); MCV 86.6 fL (80-100); MPV 9.1 fL (7.6-11.3); Platelets 90 thou/uL (152-406); RBC Red Blood Cell Count 3.35 M/uL (4.33-5.43)
[2023-09-30 05:24] LABS: Albumin 2.2 g/dL (3.4-5.0); Bilirubin Total 0.2 mg/dL (0.2-1.0); Magnesium 2.2 mg/dL (1.6-2.4); Potassium 3.6 mEq/L (3.5-5.1); Protein, Total 5.4 g/dL (6.4-8.2)
[2023-09-30 05:26] LABS: Troponin High Sensitivity 1915.2 pg/mL (<58.9)
[2023-09-30] MEDS: ACETAMINOPHEN 325 MG TABLET PO PRN ×2 (05:36→20:19)
[2023-09-30] MEDS ORDERED: ACETAMINOPHEN 325 MG TABLET PO ONE (06:08)
[2023-09-30] MEDS: POTASS/SODIUM PHOSPHATE 1 PKT POWD.PACK PO SCH ×3 (06:25→10:13)
[2023-09-30] MEDS ORDERED: POTASSIUM CL SA 10 MEQ TAB PO ONE (06:30)
[2023-09-30] MEDS ORDERED: POTASS/SODIUM PHOSPHATE 1 PKT POWD.PACK ONE (06:36)
[2023-09-30] MEDS: MORPHINE 2 MG/ML SYR IV PRN ×3 (07:28→20:19)
[2023-09-30] MEDS: CEFTRIAXONE 1,000 MG in NA CHLORIDE 0.9% 50 ML IVPB SCH ×2 (07:34→20:20)
--- NOTE | 2023-09-30 08:04 | RAD REPORT ---
EXAM DESCRIPTION: [facility] Single View09/30/2023 6:39 am CLINICAL HISTORY: Chest pain COMPARISON: 09/29/2023 FINDINGS: Worsening in [id number] right pulmonary opacities Worsening in [id number] left pulmonary opacities. Heart is normal size IMPRESSION: Worsening in bilateral pulmonary opacities probably pneumonia
--- NOTE | 2023-09-30 10:00 | P.PN ---
Subjective Date of Service: 09/30/23 Primary Care Provider: unavailable Chief Complaint: Overdose, Respiratory failure s/p CPR, Rhabdomyolysis Subjective: No new changes, Improving Physical Examination - Vital Signs Temperature: 99.7 F Blood Pressure: 127/80 Pulse: 82 Respirations: 21 Pulse Ox (%): 93 - Physical Exam General: Alert HEENT: Atraumatic Neck: Supple Respiratory: Normal air movement Cardiovascular: Regular rate/rhythm, Normal S1 S2 Gastrointestinal: Soft and benign Musculoskeletal: No swelling Assessment And Plan - Plan Assessment and Plan - Problems (Diagnosis) (1) Overdose by amphetamine Current Visit: Yes Status: Acute Plan: Much improved significantly. Critical care following. Qualifiers: Encounter type: initial encounter Injury intent: accidental or unintentional Qualified Code(s): T43.621A - Poisoning by amphetamines, accidental (unintentional), initial encounter (2) Collapse with respiratory arrest on examination Current Visit: Yes Status: Acute Plan: Much improved clinically. Chest auscultation is now clear. We will continue metronidazole dose for aspiration pneumonia. Chest x-ray finding is concerning. Pulmonary following. (3) Rhabdomyolysis Current Visit: Yes Status: Acute Plan: Improving rhabdomyolysis. CPK is trending down. we will continue IV fluid and follow trend of cpk and troponin. Qualifiers: Rhabdomyolysis type: non-traumatic Qualified Code(s): M62.82 - Rhabdomyolysis (4) Troponin level elevated Current Visit: Yes Status: Acute Plan: serial troponin evaluation. cardiology eval pending. 5. Aspiration pneumonia: Suspected based on chest x-ray finding. Procalcitonin is elevated. We will continue metronidazole and ceftriaxone doses at this point Continue steroid therapy. Discharge Plan: back to correctional service. Plan to discharge in: >48hrs. - Advance Directives Does patient have a Living Will: No Does patient have a Durable POA for Healthcare: No - Code Status/Comfort Care Code Status: Full Code Critical Care: Yes.
[2023-09-30] MEDS: HEPARIN/D5W 25,000 UNIT/500 ML BAG IV SCH (15:23)
[2023-10-01] MEDS: METHYLPREDNISOLONE 40 MG INJ IV SCH ×3 (00:57→18:56)
[2023-10-01] MEDS: METRONIDAZOLE 500mg IVPB 500 MG/100 ML BAG IV SCH ×3 (01:00→18:56)
[2023-10-01] MEDS: IPRATROPIUM BROM 0.5MG/2.5ML NEB SCH ×4 (01:05→20:05)
[2023-10-01] MEDS: ALBUTEROL 2.5 MG/3 ML NEB SOL NEB SCH ×4 (01:05→20:05)
[2023-10-01] MEDS: MORPHINE 2 MG/ML SYR IV PRN (01:53)
[2023-10-01] MEDS: NA CHLORIDE 0.9% 1,000 ML IV SCH ×4 (05:01→18:58)
--- NOTE | 2023-10-01 05:39 | P.PN ---
Date of Service: 10/01/23 Subjective: Physical Exam: Vitals: reviewed GEN: Alert, oriented, NAD HEENT: Normal conjunctiva, sclera anicteric CV: Regular rate & rhythm, no edema Pulm: Nonlabored respiraitons, clear bilaterally ABD: Soft, nontender, nondistended MSK: No joint tenderness Integumentary: No rashes Neuro: Normal speech, normal affect Problem List: Overdose by amphetamines Collapse with Respiratory arrest on examination Aspiration Pneumonia NSTEMI Rhabdomyolysis Plan: Pulm/Lacing Presser consulted Blood cx: NGTD CXR(09/30): Worsening in bilateral pulmonary opacities probably pneumonia Continue empiric rocephin / flagyl febrile, no leukocytosis continue solu-medrol currently on high flow; wean as tolerated GEORGE nebs IV heparin Echo pending PRN morphine Continue IV fluids Monitor renal function Renally dose medications
[2023-10-01 05:45] LABS: Magnesium 1.8 mg/dL (1.6-2.4); Phosphorus 2.2 mg/dL (2.5-4.9); Potassium 3.4 mEq/L (3.5-5.1)
[2023-10-01] MEDS ORDERED: POTASSIUM 25 MEQ EFFERV TAB PO ONE (05:47)
[2023-10-01] MEDS ORDERED: MAGNESIUM SULFATE 1 gm IVPB 1 GM/100 ML BAG IV ONE (05:47)
[2023-10-01] MEDS: POTASS/SODIUM PHOSPHATE 1 PKT POWD.PACK PO SCH ×3 (06:04→18:56)
--- NOTE | 2023-10-01 07:49 | ECHO ---
HEIGHT: 5 ft 11 in WEIGHT: 172 lb 6.424 oz DATE OF STUDY: 09/28/[address]: Ladarius Triana MD 2-DIMENSIONAL: YES M.MODE: YES DOPPLER: YES COLOR FLOW: YES TDS: PORTABLE: YES DEFINITY: BUBBLE STUDY: DIAGNOSIS: CARDIAC ARREST CARDIAC HISTORY: CATHERIZATION: SURGERY: PROSTHETIC VALVE: PACEMAKER: MEASUREMENTS (cm) DIASTOLIC (NORMALS) SYSTOLIC (NORMALS) IVSd 1.0 (0.6-1.2) LA Diam 2.6 (1.9-4.0) LVEF 45-50% LVIDd 4.1 (3.5-5.7) LVIDs 3.3 (2.0-3.5) %FS 19% LVPWd 1.0 (0.6-1.2) Ao Diam 2.7 (2.0-3.7) 2 DIMENSIONAL ASSESSMENT: RIGHT ATRIUM: NORMAL LEFT ATRIUM: NORMAL RIGHT VENTRICLE: NORMAL LEFT VENTRICLE: MILD HYPOKINESIS TRICUSPID VALVE: MILD TRICUSPID REGURGITATION MITRAL VALVE: MILD MITRAL REGURGITATION PULMONIC VALVE: NORMAL AORTIC VALVE: NORMAL PERICARDIAL EFFUSION: NONE AORTIC ROOT: NORMAL LEFT VENTRICULAR WALL MOTION: MILD GLOBAL HYPOKINESIS DOPPLER/COLOR FLOW: SEE BELOW COMMENTS: 1. MILDLY DEPRESSED LEFT VENTRICULAR EJECTION FRACTION 45-50% 2. MILD GLOBAL HYPOKINESIS 3. MILD MITRAL REGURGITAITON 4. MILD TRICUSPID REGURGITATION TECHNOLOGIST: ESTHER EDOUARD
[2023-10-01] MEDS: ZIPRASIDONE MESYLA 20 MG/VIAL IM PRN ×2 (08:09→20:07)
[2023-10-01] MEDS: CEFTRIAXONE 1,000 MG in NA CHLORIDE 0.9% 50 ML IVPB SCH ×2 (08:09→20:06)
[2023-10-01] MEDS ORDERED: POTASS/SODIUM PHOSPHATE 1 PKT POWD.PACK ONE ×2 (08:17→18:54)
[2023-10-01] MEDS ORDERED: CEFTRIAXONE 1000 MG/VIAL ONE (08:18)
[2023-10-01] MEDS ORDERED: METHYLPREDNISOLONE 40 MG INJ ONE (08:18)
[2023-10-01] MEDS ORDERED: METRONIDAZOLE 500mg IVPB 500 MG/100 ML BAG IV ONE (08:19)
[2023-10-01] MEDS ORDERED: ZIPRASIDONE MESYLA 20 MG/VIAL IM ONE ×2 (08:19→20:05)
[2023-10-01] MEDS ORDERED: WATER FOR INJ,STERILE 10 ML ONE (08:19)
[2023-10-01] MEDS ORDERED: NA CHLORIDE 0.9% 0 ML ONE ×2 (08:19→08:28)
[2023-10-01] MEDS ORDERED: NA CHLORIDE 0.9% 100 ML ONE (18:54)
[2023-10-01] MEDS: WATER FOR INJ,STERILE 10 ML IM PRN (20:07)
[2023-10-01] MEDS ORDERED: ALBUTEROL 2.5 MG/3 ML NEB SOL ONE (20:17)
[2023-10-01] MEDS: HEPARIN/D5W 25,000 UNIT/500 ML BAG IV SCH (23:39)
[2023-10-02 00:07] VITALS: O2SAT 93
[2023-10-02] MEDS: METRONIDAZOLE 500mg IVPB 500 MG/100 ML BAG IV SCH (00:15)
[2023-10-02] MEDS: METHYLPREDNISOLONE 40 MG INJ IV SCH (00:15)
[2023-10-02] MEDS: IPRATROPIUM BROM 0.5MG/2.5ML NEB SCH (01:30)
[2023-10-02] MEDS: ALBUTEROL 2.5 MG/3 ML NEB SOL NEB SCH (01:30)
[2023-10-02] MEDS: ZIPRASIDONE MESYLA 20 MG/VIAL IM PRN (02:30)
[2023-10-02] MEDS: WATER FOR INJ,STERILE 10 ML IM PRN (02:30)
[2023-10-02] MEDS ORDERED: ZIPRASIDONE MESYLA 20 MG/VIAL IM ONE (02:32)
[2023-10-02 06:00] LABS: Phosphorus 3.2 mg/dL (2.5-4.9); Potassium 3.1 mEq/L (3.5-5.1)
[2023-10-02] MEDS ORDERED: POTASSIUM CL SA 10 MEQ TAB PO ONE (07:18)
[2023-10-02] MEDS ORDERED: METOPROLOL TAR 25 MG TAB PO SCH (07:23)
[2023-10-02 08:37] VITALS: BP 138/89; TEMP 99.2
[2023-10-02] MEDS ORDERED: CLOPIDOGREL 75 MG TABLET PO SCH (09:00)
[2023-10-02] MEDS ORDERED: ASPIRIN 81 MG CHEWABLE TABLET PO SCH (09:00)
[2023-10-02] MEDS ORDERED: TAMSULOSIN 0.4 MG SR CAP ONE (09:16)
== END 2023-10-02 08:00 | disposition left against medical advice (07) | DRG 917 ==
LOC: ER 19:01 → ERHOLD 19:50 → 3RD-ICU 22:02
PROVIDERS: ADMIT Internal Medicine Nephrology; ATTEND Hospitalist
PROC: 5A1945Z Respiratory Ventilation, 24-96 Consecutive Hours (ICD-10-PCS; principal; 2023-09-27)
PROC: 0BH17EZ Insertion of Endotracheal Airway into Trachea, Via Natural or Artificial Opening (ICD-10-PCS; 2023-09-27)
DX: T43.621A Poisoning by amphetamines, accidental (unintentional), initial encounter (principal); I21.4 Non-ST elevation (NSTEMI) myocardial infarction; J69.0 Pneumonitis due to inhalation of food and vomit; J96.00 Acute respiratory failure, unspecified whether with hypoxia or hypercapnia; M62.82 Rhabdomyolysis; E16.2 Hypoglycemia, unspecified; R77.8 Other specified abnormalities of plasma proteins; Z78.1 Physical restraint status
CPT/HCPCS: 36415; 36600; 70450; 71045; 72125; 80048; 80053; 80076; 80307; 81001; 82550; 82805; 82947; 83605; 83690; 83735; 83880; 84100; 84132; 84145; 84484; 85025; 85610; 85730; 87040; 87086; 87088; 93005; 93306; 94002; 94003; 94640; 94660; 99291; J0171; J0612; J0696; J1644; J1650; J2250; J2270; J2920; J3010; J3411; J3475; J3486; J7030; J7040; J7050; J7613; J7644

== ENCOUNTER 2023-10-23 14:00 | Emergency (ER) | payer SELFPAY ==
--- OUTSIDE RECORDS SUMMARY | 2023-10-23 14:08 | XMS REPORT | Continuity of Care Document ---
:1995 Author Organization [facility] t Address [address] [facility] [address] [place] [id number] Care Team Providers Name Role Phone Kristie Valdez Attending Clinician Doctor Unassigned, [place] Attending Clinician Unavailable Problems This patient has no known problems. Allergies, Adverse Reactions, Alerts This patient has no known allergies or adverse reactions. Social History Social Habit Start Date Stop Date Quantity Comments [facility] Status Start Date Stop Date Source Unknown if ever smoked [facility] Medications Ordered Filled Start Stop Current Ordering Indication Dosage Frequency Signature Comments Components Source Medication Medication Date Date Medication? Clinician (SIG) Name Name No known No [facility] medications [facility] Vital Signs Vital Name Observation Time Observation Value Comments Source Systolic blood 2019-12-26 18:19:00 132 mm[Hg] Univer [facility]ity [facility] Diastolic blood 2019-12-26 18:19:00 78 [facility]Hg[facility] 2019-12-26 18:19:00 77 /min [facility] Body temperature 2019-12-26 18:19:00 36.89 [facility] Respiratory rate 2019-12-26 18:19:00 14 /min [facility] Body height 2019-12-26 18:19:00 190.5 cm [facility] Body weight 2019-12-26 18:19:00 63.504 kg [facility] BMI 2019-12-26 18:19:00 17.50 kg/m2 [facility] Oxygen saturation in 2019-12-26 18:19:00 100 /min [facility] blood by [facility] Pulse oximetry Branch Procedures Procedure Date / Time Performed Performing Clinician [facility] e NOTICE OF PRIVACY 2019-12-26 18:13:30 Doctor Unassigned, No [facility] PRACTICES Name Medical Branch CONSENT/REFUSAL FOR 2019-12-26 18:13:17 Doctor Unassigned, [facility] AND Name Medical Branch TREATMENT Encounters Start End Encounter Admission Attending Care Care Encounter Source Date/Time Date/Time Type Type Clinicians Facility Department ID 2019-12-26 2019-12-26 Emergency Margo, [facility] [id number] Univers 12:20:04 13:06:00 Kristie Rea [id number] [facility] [place] [id number] [id number] [facility] tung 084 Branch 2019-12-26 2019-12-26 Orders Doctor LIU [id number] Univers 00:00:00 00:00:00 Only Unassigned, JOSIE [id number] ity of [place] [facility] [id number] Michel [id number] [facility] 009 Branch Results This patient has no known results.
[2023-10-23] MEDS ORDERED: KETOROLAC 30 MG/ML INJ ONE (14:27)
--- NOTE | 2023-10-23 15:16 | RAD REPORT ---
EXAM DESCRIPTION: [facility]10/23/2023 2:57 pm CLINICAL HISTORY: Right leg pain COMPARISON: None. FINDINGS: Right common femoral, superficial femoral, greater saphenous, popliteal and right posterio r tibial veins are compressible and demonstrate augmentation. Doppler demonstrates good flow. Grayscale, color and spectral analysis performed on all vessels IMPRESSION: No evidence of deep venous thrombosis involving the right lower extremity.
--- NOTE | 2023-10-23 15:23 | EDPHYS ---
Physician Documentation [facility] Name: Sae Betancur III Age: 27 yrs Sex: Male : 1995 Arrival Date: 10/23/2023 Time: 14:00 Bed 11 Private MD: ED Physician Reba Kohler HPI: 10/23 14:40 This 27 yrs old Male presents to ER via Ambulatory with complaints of Leg Pain.kb 14:40 Patient is a 27-year-old male who presents for right leg pain that has been going on kb for approximately 2 weeks. States prior to that he was admitted into the hospital for 1 week after an overdose.. Historical: - Allergies: 14:08 No Known Allergies; cm10 - Home Meds: 14:08 None [Active]; cm10 - PMHx: 14:08 None; cm10 - PSHx: 14:08 None; cm10 - Immunization history:: Adult Immunizations unknown. - Social history:: Smoking status: Reported history of juuling and/or vaping. ROS: 14:39 Constitutional: Negative for fever, chills, and weight loss, kb 14:39 MS/extremity: Positive for pain, of the right leg, 14:39 All other systems are negative, Exam: 14:39 Constitutional: This is a well developed, well nourished patient who is awake, alert, kb and in no acute distress. Head/Face: Normocephalic, atraumatic. ENT: Moist Mucous membranes Cardiovascular: Regular rate Respiratory: Respirations even and unlabored. No increased work of breathing. Talking in full sentences Abdomen/GI: Soft, non-tender. No distention Skin: Warm, dry with normal turgor. Normal color. Neuro: Awake and alert, GCS 15, oriented to person, place, time, and situation. Moves all extremities. Normal gait. 14:39 Musculoskeletal/extremity: Extremities: grossly normal except: noted in the right leg: pain, ROM: intact in all extremities, Circulation is intact in all extremities. Sensation intact. Weight bearing: able to fully bear weight, Vital Signs: 14:05 BP 135 / 85; Pulse 88; Resp 18; Temp 98.2(IR); Pulse Ox 100% ; Weight 78.02 kg; cm10 14:09 Pain 10/10; cm10 14:09 Pain Scale: Adult cm10 MDM: 14:03 Patient medically screened. kb 14:39 Differential diagnosis: tendonitis, Sciatica, DVT. Data reviewed: vital signs, nurses kb notes. 15:22 Counseling: I had a detailed discussion with the patient and/or guardian regarding the kb historical points, exam findings, and any diagnostic results supporting the discharge/admit diagnosis, radiology results, the need for outpatient follow up, a family practitioner, to return to the emergency department if symptoms worsen or persist or if there are any questions or concerns that arise at home. 10/23 14:10 Order name: US Extremity Venous Unilateral Ltd; Complete Time: 15:21 kb Administered Medications: 14:15 Drug: Ketorolac IM 30 mg IM once Route: IM; Site: left deltoid; mb9 14:23 Follow up: Response: No adverse reaction mb9 Disposition Summary: 10/23/23 15:22 Discharge Ordered Notes: Location: Home kb Condition: Stable kb Diagnosis - Pain in right leg kb Followup: kb - With: Emergency Department - When: As needed - Reason: Worsening of condition Followup: kb - With: Private Physician - When: 2 - 3 days - Reason: Recheck today's complaints, Continuance of care, Re-evaluation by your physician Discharge Instructions: - Discharge Summary Sheet kb - Musculoskeletal Pain kb Forms: - Medication Reconciliation Form kb - Thank You Letter kb - Antibiotic Education kb - Prescription Opioid Use kb - Patient Portal Instructions kb - Leadership Thank You Letter kb Prescriptions: - Diclofenac Sodium 75 mg Oral tablet, delayed release (enteric coated) - take 1 tablet ORAL route 2 times per day; 20 tablet; Refills: 0, Product kb Selection Permitted - orphenadrine citrate 100 mg Oral Tablet Sustained Release - take 1 tablet ORAL route 2 times per day As needed; 20 tablet; Refills: 0, kb Product Selection Permitted Signatures: Dispatcher [employer] Andie Rios FNP-C FNP-Ckb Breneman, Mary Beth RN RN mb9 Janna Bourne RN RN cm10
--- NOTE | 2023-10-23 15:23 | ER ---
Nurse's Notes [facility] Name: Sae Betancur III Age: 27 yrs Sex: Male : 1995 Arrival Date: 10/23/2023 Time: 14:00 Bed 11 Private MD: Diagnosis: Pain in right leg Presentation: 10/23 14:05 Chief complaint: Patient states: Right leg pain X2 weeks. Pt states that he was cm10 admitted to the hospital for 1 week 2 weeks ago s/p OD. Coronavirus screen: Vaccine status: Patient reports being unvaccinated. Client denies travel out of the [place] in the last 14 days. Ebola Screen: Patient denies travel to an Ebola-affected area in the 21 days before illness onset. No symptoms or risks identified at this time. Initial Sepsis Screen: Does the patient meet any 2 criteria? No. Patient's initial sepsis screen is negative. Does the patient have a suspected source of infection? No. Patient's initial sepsis screen is negative. Risk Assessment: Do you want to hurt yourself or someone else? Patient reports no desire to harm self or others. Onset of symptoms was October 23, 2023. 14:05 Method Of Arrival: Ambulatory cm10 14:05 Acuity: TOMAS 4 cm10 Historical: - Allergies: 14:08 No Known Allergies; cm10 - Home Meds: 14:08 None [Active]; cm10 - PMHx: 14:08 None; cm10 - PSHx: 14:08 None; cm10 - Immunization history:: Adult Immunizations unknown. - Social history:: Smoking status: Reported history of juuling and/or vaping. Screenin:16 [facility] ED Fall Risk Assessment (Adult) History of falling in the last 3 months, mb9 including since admission No falls in past 3 months (0 pts) Confusion or Disorientation No (0 pts) Intoxicated or Sedated No (0 pts) Impaired Gait No (0 pts) Mobility Assist Device Used No (0 pt) Altered Elimination No (0 pt) Score/Fall Risk Level 0 - 2 = Low Risk Oriented to surroundings, Maintained a safe environment, Educated pt \T\ family on fall prevention, incl call for assistance when getting out of bed. Abuse screen: Denies threats or abuse. Nutritional screening: No deficits noted. Tuberculosis screening: No symptoms or risk factors identified. Assessment: 14:15 General: Appears in no apparent distress. Behavior is calm, cooperative. Pain: mb9 Complains of pain in right leg Pain currently is 10 out of 10 on a pain scale. Quality of pain is described as burning, aching, throbbing, Pain began 2-3 days ago. Neuro: Piña Agitation-Sedation Scale (RASS): 0 - Alert and Calm Level of Consciousness is awake, alert, obeys commands, Oriented to person, place, time, situation, Appropriate for age. Cardiovascular: Patient's skin is warm and dry. Respiratory: Airway is patent Respiratory effort is even, unlabored, Respiratory pattern is regular, symmetrical. Respiratory: Denies shortness of breath. GI: No signs and/or symptoms were reported involving the gastrointestinal system. : No signs and/or symptoms were reported regarding the genitourinary system. EENT: No signs and/or symptoms were reported regarding the EENT system. Derm: Skin is pink, warm \T\ dry. Musculoskeletal: Range of motion: intact in all extremities. 14:34 Reassessment: pt taken to ultrasound via wheelchair. mb9 15:19 Reassessment: Patient appears in no apparent distress at this time. No changes from mb9 previously documented assessment. Patient and/or family updated on plan of care and expected duration. Pain level reassessed. Patient is alert, oriented x 3, equal unlabored respirations, skin warm/dry/pink. Vital Signs: 14:05 BP 135 / 85; Pulse 88; Resp 18; Temp 98.2(IR); Pulse Ox 100% ; Weight 78.02 kg; cm10 14:09 Pain 10/10; cm10 14:09 Pain Scale: Adult cm10 ED Course: 14:03 Patient arrived in ED. mr 14:03 And[facility] Rosario [facility]C [facility]. kb 14:03 Reba Kohler MD is Attending Physician. kb 14:08 Triage completed. cm10 14:09 Arm band placed on Patient placed in an exam room, on a stretcher. cm10 14:10 Ana Maria Rodriguez RN is Primary Nurse. mb9 14:16 Placed in gown. Bed in low position. Call light in reach. Side rails up X 1. Client mb9 placed on continuous cardiac and pulse oximetry monitoring. NIBP monitoring applied. 14:16 No provider procedures requiring assistance completed. mb9 14:59 US Extremity Venous Unilateral Ltd In Process Unspecified. EDMS 15:38 Provided Education on: ER process and procedures.. cm10 15:38 Patient did not have IV access during this emergency room visit. cm10 Administered Medications: 14:15 Drug: Ketorolac IM 30 mg IM once Route: IM; Site: left deltoid; mb9 14:23 Follow up: Response: No adverse reaction mb9 Medication: 15:38 VIS not applicable for this client. cm10 Outcome: 15:22 Discharge ordered by . malorie 15:38 Discharged to home ambulatory, with friend, cm10 15:38 Condition: good 15:38 Discharge instructions given to patient, Instructed on discharge instructions, follow up and referral plans. medication usage, Demonstrated understanding of instructions, follow-up care, medications, Prescriptions given X 2, 15:39 Patient left the ED. cm10 Signatures: Dispatcher [employer] EDMS Andie Rosario, [employer]-Ana Maria Ngo, Zeeshan ArmasbettyAna Maria, RN RN mb9 Janna Bourne RN RN cm10
[2023-10-23 15:44] VITALS: BP 135/85; TEMP 98.2; O2SAT 100
== END 2023-10-23 15:39 | disposition home or self-care (01) ==
LOC: ER 14:00
DX: M79.604 Pain in right leg (principal)
CPT/HCPCS: 93971; 96372; 99284